=== PATIENT | female | born 1980 | race Two or more races ===

== ENCOUNTER 2023-12-24 17:05 | Emergency (ER) | payer BC ==
[~2023-12-24] VITALS: Ht 170.2 cm; Wt 77.3 kg
[2023-12-24 17:53] LABS: BASOPHILS % (AUTO) 0.5 % (0-1); EOSINOPHILS # (AUTO) 0.3 X10'3 (0-0.9); EOSINOPHILS % (AUTO) 3.6 % (0-6); HEMOGLOBIN 13.6 g/dl (12.0-16.0); LYMPHOCYTES # (AUTO) 2.8 X10'3 (1.1-4.8); LYMPHOCYTES % (AUTO) 31.1 % (21-51); MEAN CORPUSCULAR HEMOGLOBIN 32.7 PG (27.0-31.0); MEAN CORPUSCULAR HGB CONC 34.1 g/dL (33.0-36.5); MEAN PLATELET VOLUME 7.7 FL (7.4-10.4); MONOCYTES # (AUTO) 0.7 X10'3 (0-0.9); MONOCYTES % (AUTO) 7.5 % (2-12); NEUTROPHILS # (AUTO) 5.2 X10'3 (1.8-7.7); NEUTROPHILS % (AUTO) 57.3 % (42-75); PLATELET COUNT 319 X10'3 (140-440); RED BLOOD COUNT 4.17 X10'6 (4.20-5.60); RED CELL DISTRIBUTION WIDTH 12.6 % (11.5-14.5)
[2023-12-24 18:02] LABS: ALBUMIN 4.6 G/DL (3.4-5.0); ANION GAP 6 (8-16); BLOOD UREA NITROGEN 12 MG/DL (7-18); BUN/CREATININE RATIO 20.7 (10.0-20.0); CALCIUM 9.3 MG/DL (8.5-10.1); CHLORIDE 100 MMOL/L (99-107); CREATININE 0.58 MG/DL (0.40-0.90); GLUCOSE 95 MG/DL (70-104); POTASSIUM 3.9 MMOL/L (3.5-5.1); SODIUM 136 MMOL/L (135-145); TOTAL CARBON DIOXIDE 29.6 MMOL/L (24-32); eCRCL 120 ML/MIN; eGFR > 90 ML/MIN
[2023-12-24 19:17] VITALS: BP 158/86; PULSE 70; RESP 16; TEMP 98; O2SAT 100
== END 2023-12-24 19:19 | disposition home or self-care (01) ==
LOC: ER 17:06
DX: R55 Syncope and collapse (principal); R42 Dizziness and giddiness
CPT/HCPCS: 36415; 80048; 85025; 93005; 99284

== ENCOUNTER 2024-08-26 10:02 | Emergency (ER) | payer BC ==
[~2024-08-26] VITALS: Ht 170.2 cm; Wt 89.8 kg
[2024-08-26 10:45] LABS: BILIRUBIN,URINE NEGATIVE (Neg); CLARITY,URINE SLIGHTLY CLOUDY (Clear); COLOR,URINE YELLOW (Yellow); GLUCOSE, URINE NEGATIVE (Neg); KETONES,URINE NEGATIVE (Neg); LEUKOCYTE ESTERASE ,URINE NEGATIVE (Neg); NITRITES, URINE NEGATIVE (Neg); OCCULT BLOOD,URINE LARGE (Neg); PROTEIN,URINE NEGATIVE (Neg); UA COLLECTION TYPE CLN CATCH MIDSTREAM; UROBILINOGEN,URINE 0.2 E.U/dL (0.2-1.0)
[2024-08-26 10:47] LABS: BACTERIA,URINE FEW /HPF (Neg); MUCUS STRANDS MODERATE /LPF (Neg); RBC,URINE TNTC /HPF (0-2); SQUAMOUS EPITHELIAL CELL,UR MODERATE /LPF (FEW); TRANSITIONAL EPI CELLS,URINE FEW /HPF
[2024-08-26 10:51] LABS: BASOPHILS % (AUTO) 0.6 % (0-1); EOSINOPHILS # (AUTO) 0.2 X10'3 (0-0.9); EOSINOPHILS % (AUTO) 2.6 % (0-6); HEMATOCRIT 35.5 % (35.0-45.0); HEMOGLOBIN 12.1 g/dl (12.0-16.0); LYMPHOCYTES # (AUTO) 1.7 X10'3 (1.1-4.8); LYMPHOCYTES % (AUTO) 26.9 % (21-51); MEAN CORPUSCULAR HEMOGLOBIN 31.5 PG (27.0-31.0); MEAN CORPUSCULAR VOLUME 92.5 FL (78-98); MEAN PLATELET VOLUME 7.6 FL (7.4-10.4); MONOCYTES # (AUTO) 0.5 X10'3 (0-0.9); MONOCYTES % (AUTO) 7.3 % (2-12); NEUTROPHILS # (AUTO) 3.9 X10'3 (1.8-7.7); NEUTROPHILS % (AUTO) 62.6 % (42-75); PLATELET COUNT 376 X10'3 (140-440); RED BLOOD COUNT 3.84 X10'6 (4.20-5.60); RED CELL DISTRIBUTION WIDTH 12.7 % (11.5-14.5); WHITE BLOOD COUNT 6.2 X10'3 (4.5-11.0)
[2024-08-26] MEDS: morphine 4 MG/ML inj SYRINge IV ONE (10:51)
[2024-08-26] MEDS: metoclopramide 5 mg/ml inj IV ONE (10:51)
[2024-08-26] MEDS: ondansetron/PF 4mg/2ml inj IV ONE (10:51)
[2024-08-26 11:11] LABS: ALANINE AMINOTRANSFERASE 20 U/L (12-78); ALBUMIN 4.2 G/DL (3.4-5.0); ALBUMIN/GLOBULIN RATIO 1.2 (1.1-1.5); ALKALINE PHOSPHATASE 41 IU/L (46-116); ANION GAP 7 (8-16); ASPARTATE AMINO TRANSFERASE 10 U/L (10-37); BILIRUBIN,DIRECT 0.1 MG/DL (0-0.3); BILIRUBIN,TOTAL 0.4 MG/DL (0.1-1.0); BLOOD UREA NITROGEN 16 MG/DL (7-18); BUN/CREATININE RATIO 26.7 (10.0-20.0); CALCIUM 8.5 MG/DL (8.5-10.1); CHLORIDE 103 MMOL/L (99-107); GLUCOSE 94 MG/DL (70-104); POTASSIUM 3.9 MMOL/L (3.5-5.1); SODIUM 139 MMOL/L (135-145); TOTAL CARBON DIOXIDE 29.4 MMOL/L (24-32); TOTAL PROTEIN 7.6 G/DL (6.4-8.2); eCRCL 115 ML/MIN; eGFR > 90 ML/MIN
[2024-08-26 11:15] LABS: URINE HCG NEGATIVE (NEG)
[2024-08-26 12:15] VITALS: TEMP 97.9
[2024-08-26] MEDS ORDERED: TADA5TAB2 PO (12:51)
[2024-08-26] MEDS ORDERED: FLO0.4C PO (12:51)
[2024-08-26] MEDS ORDERED: HYDR-3973 PO (12:51)
[2024-08-26] MEDS ORDERED: CEPH-585 PO (12:51)
[2024-08-26 13:07] VITALS: BP 137/78; PULSE 69; RESP 18; O2SAT 99
== END 2024-08-26 13:08 | disposition home or self-care (01) ==
LOC: ER 10:02
DX: N20.2 Calculus of kidney with calculus of ureter (principal); Z91.040 Latex allergy status; Z88.2 Allergy status to sulfonamides
CPT/HCPCS: 36415; 74176; 80048; 80076; 81001; 81025; 85025; 87088; 96374; 96375; 99285; J2270; J2405; J2765